=== PATIENT | female | born 1955 | race African-American/Black ===

== ENCOUNTER → 2018-02-01 | Outpatient (CLI) | payer OTHER ==
[~2018-02-01] VITALS: Ht 154.9 cm; Wt 72.6 kg
[~2018-02-01] MED LIST: ASPIRIN325 MG PO; VALSARTAN-HCTZ1 EAC2 PO
== END | disposition home or self-care (01) ==
LOC: AMB 09:18
DX: R13.10 Dysphagia, unspecified (principal); Z79.82 Long term (current) use of aspirin; Z88.2 Allergy status to sulfonamides
CPT/HCPCS: 88305; 93005; J7643